=== PATIENT | male | born 1985 | race Caucasian/White ===

== ENCOUNTER 2017-06-21 13:12 | Emergency (ER) | payer MEDICAID, SELFPAY ==
[2017-06-21 13:42] VITALS: BP 111/70; PULSE 81; RESP 20; TEMP 37.1; O2SAT 97; BMI 19.8
--- NOTE | 2017-06-21 14:21 | HMH.EDUTC ---
[facility] [place] Disposition Clinical Impression: Low back strain Qualifiers: Encounter type: initial encounter Qualified Code(s): S39.012A - Strain of muscle, fascia and tendon of lower back, initial encounter Disposition: Home, Self-Care Condition on Discharge: Good Instructions: DI for Back Strain or Sprain Additional Instructions: * naproxen every 12 hours with meal as needed for pain/inflammation. * Remember you had a toradol shot, similiar anti-inflammatory in clinic so no naproxen for at least 6-8 hours * No additional anti-inflammatories like motrin, aleve, advil with the above amount of naproxen. You CAN still take Tylenol every 4 hours as needed if you need something more for pain. * Ice x15-20 mins 3-4 times a day for first 48 hours after the initial injury followed by moist heat x15-20 mins 3-4 times a day to affected area * Keep this area active. No movement leads to more stiffness. However, take it easy too and avoid heavy lifting, pushing, pulling Follow up with primary care immediately for new or worsening symptoms but also if no improvement over the next 72 hours. Prescriptions: Naproxen 500 mg PO BID PRN #20 tab PRN Reason: Moderate To Severe Pain Time of Disposition: 15:22 Medical Decision Making Vital Signs: 06/21/17 13:42 Temperature 98.7 F Temperature Source Temporal Artery Scan Pulse Rate [Right Radial] 81 Respiratory Rate 20 Blood Pressure [Right Arm] 111/70 Blood Pressure Mean [Right Arm] 83 Blood Pressure Source [Right Arm] Automatic Cuff Blood Pressure Position [Right Arm] Sitting 02 Sat by Pulse Oximetry 97 Oxygen Delivery Method Room Air - Lab Data Lab results reviewed: Yes: I reviewed the patient's lab results. Lab Results 06/21/17 14:30: Urine Color Yellow, Urine Appearance Clear, Urine pH 6.5, Ur Specific [place] 1.020, Urine Protein Negative, Urine Glucose (UA) Negative, Urine Ketones Negative, Urine Blood Negative, Urine Nitrate Negative, Urine Bilirubin Negative, Urine Urobilinogen 1, Ur Leukocyte Esterase Negative Orders (Tests/Meds): ED MEDICATIONS Discontinued Medications Generic Name Dose Route Start Last Admin Trade Name Freq PRN Reason Stop Dose Admin Ketorolac Tromethamine 60 mg 06/21/17 14:50 06/21/17 15:00 Toradol 60mg/2ml Vial IM 06/21/17 14:51 60 mg ONCE ONE Administration - Radhames Inquiry Pt receiving controlled substance: No - Reevaluation(s) Reevaluation #1: pain improved with toradol. Unable to place a number now but is better then it was before. I can move more now. Pt up ambulating in room without any sign of pain/distress [facility] [place] HPI - General Stated complaint: Back pain Time Seen by Provider: 06/21/17 14:21 Mode of Arrival: Family Vehicle Source of Information: Patient Limitations: No Limitations Description of Symptoms (Recalled from Triage Doc. by RN): PT C/O LOWER BACK PAIN. PT STATES HE WOKE UP WITH THE PAIN. DENIES INJURY OR HX OF SCIATIC PAIN. HEENT Symptoms (Recalled from RN notes): No Resp Symptoms (Recalled from RN notes): No Skin Symptoms (Recalled from RN notes): No MS Symptoms (Recalled from RN notes): Yes (LOWER BACK PAIN) Functional Status (Recalled from RN notes): NA - History of Present Illness Provider Complaint: c/o left sided low back pain. Started when woke up yesterday morning. no known injury, trauma, slip, fall. Reports day before, had pushed car alone when it quit running. No pain then. Hasn't taken or tried anything for symptoms. No constant pain. Intermittent sharp pain with certain ways I move or bend . Currently 4/10. Worse if sits or stands too long and improves with changing positions. - Related Data Previous Rx's Medication Instructions Recorded Naproxen 500 mg PO BID PRN #20 tab 06/21/17 Allergies Allergy/AdvReac Type Severity Reaction Status Date / Time No Known Allergies Allergy Verified 06/21/17 13:38 - Worker's Comp Is this a Worker's Comp case?: No [facility] History I
--- NOTE | 2017-06-21 14:30 | ED_ITS ---
[facility] [place] Impression: Low back strain Qualifiers: Encounter type: initial encounter Qualified Code(s): S39.012A - Strain of muscle, fascia and tendon of lower back, initial encounter Disposition: Home, Self-Care Condition on Discharge: Good Instructions: DI for Back Strain or Sprain Additional Instructions: * naproxen every 12 hours with meal as needed for pain/inflammation. * Remember you had a toradol shot, similiar anti-inflammatory in clinic so no naproxen for at least 6-8 hours * No additional anti-inflammatories like motrin, aleve, advil with the above amount of naproxen. You CAN still take Tylenol every 4 hours as needed if you need something more for pain. * Ice x15-20 mins 3-4 times a day for first 48 hours after the initial injury followed by moist heat x15-20 mins 3-4 times a day to affected area * Keep this area active. No movement leads to more stiffness. However, take it easy too and avoid heavy lifting, pushing, pulling Follow up with primary care immediately for new or worsening symptoms but also if no improvement over the next 72 hours. Prescriptions: Naproxen 500 mg PO BID PRN #20 tab PRN Reason: Moderate To Severe Pain Time of Disposition: 15:22 Medical Decision Making Vital Signs: 06/21/17 13:42 Temperature 98.7 F Temperature Source Temporal Artery Scan Pulse Rate [Right Radial] 81 Respiratory Rate 20 Blood Pressure [Right Arm] 111/70 Blood Pressure Mean [Right Arm] 83 Blood Pressure Source [Right Arm] Automatic Cuff Blood Pressure Position [Right Arm] Sitting 02 Sat by Pulse Oximetry 97 Oxygen Delivery Method Room Air - Lab Data Lab results reviewed: Yes: I reviewed the patient's lab results. Lab Results 06/21/17 14:30: Urine Color Yellow, Urine Appearance Clear, Urine pH 6.5, Ur Specific [place] 1.020, Urine Protein Negative, Urine Glucose (UA) Negative, Urine Ketones Negative, Urine Blood Negative, Urine Nitrate Negative, Urine Bilirubin Negative, Urine Urobilinogen 1, Ur Leukocyte Esterase Negative Orders (Tests/Meds): ED MEDICATIONS Discontinued Medications Generic Name Dose Route Start Last Admin Trade Name Freq PRN Reason Stop Dose Admin Ketorolac Tromethamine 60 mg 06/21/17 14:50 06/21/17 15:00 Toradol 60mg/2ml Vial IM 06/21/17 14:51 60 mg ONCE ONE Administration - Radhames Inquiry Pt receiving controlled substance: No - Reevaluation(s) Reevaluation #1: pain improved with toradol. Unable to place a number now but is better then it was before. I can move more now. Pt up ambulating in room without any sign of pain/distress [facility] [place] - General Stated complaint: Back pain Time Seen by Provider: 06/21/17 14:21 Mode of Arrival: Family Vehicle Source of Information: Patient Limitations: No Limitations Description of Symptoms (Recalled from Triage Doc. by RN): PT C/O LOWER BACK PAIN. PT STATES HE WOKE UP WITH THE PAIN. DENIES INJURY OR HX OF SCIATIC PAIN. HEENT Symptoms (Recalled from RN notes): No Resp Symptoms (Recalled from RN notes): No Skin Symptoms (Recalled from RN notes): No MS Symptoms (Recalled from RN notes): Yes (LOWER BACK PAIN) Functional Status (Recalled from RN notes): NA - History of Present Illness Provider Complaint: c/o left sided low back pain. Started when woke up yesterday morning. no known injury, trauma, slip, fall. Reports day before, had pushed car alone when it q
[2017-06-21 14:38] LABS: Apearance,Urine Clear (Clear); Color,Urine Yellow (Yellow)
[2017-06-21 14:39] LABS: Bilirubin,Urine Negative (Negative); Blood, Urine Negative (Negative); Glucose,Urine (UA) Negative (Negative); Ketones,Urine Negative (Negative); PH,Urine 6.5 (5.0-8.5); Protein,Urine Negative (Negative); UTC Leukocyte Esterase,Urine Negative (Negative); UTC Nitrate,Urine Negative (Negative); Urobilinogen,Urine 1 EU/dl (0.2)
[2017-06-21 15:23] VITALS: BP 144/70; PULSE 81; RESP 20; TEMP 36.6; O2SAT 99
== END 2017-06-21 15:24 | disposition home or self-care (01) ==
PROVIDERS: Emergency Provider Nurse Practitioner Family; Family Provider Family Medicine
DX: S39.012A Strain of muscle, fascia and tendon of lower back, initial encounter (principal); X50.0XXA Overexertion from strenuous movement or load, initial encounter; Y92.488 Other paved roadways as the place of occurrence of the external cause; F17.210 Nicotine dependence, cigarettes, uncomplicated; F10.10 Alcohol abuse, uncomplicated
CPT/HCPCS: 81003; 96372; 99202

== ENCOUNTER 2020-12-28 01:44 | Emergency (ER) | payer MEDICAID, SELFPAY ==
[2020-12-28 01:44] VITALS: BP 122/71; PULSE 78; RESP 16; TEMP 36.8; O2SAT 96; BMI 19.8
--- NOTE | 2020-12-28 01:53 | HMH.EDGENADL ---
ED Disposition Clinical Impression: Alcoholic intoxication Disposition: Home, Self-Care Condition on Discharge: Good Additional Instructions: Return to the emergency room for any new symptoms. Follow-up with your primary care physician. Avoid alcohol. Referrals: Provider,Referral, [Referring] - - Critical Care Critical Care Time: No Attestation: On 12/28/20, the high probability of a clinically significant, sudden or life threatening deterioration of the following system(s) required my full and direct attention, intervention and personal management. The time I documented below is in addition to time spent performing reported procedures but includes the following listed in this critical care notation. Medical Decision Making - Medical Records MR Comment: All the labs were negative except alcohol is positive. Alcohol intoxication. - Radhames Inquiry Pt receiving controlled substance: No Radhames was queried for this patient: No Vital Signs: 12/28/20 01:44 Temperature 98.2 F Temperature Source Oral Pulse Rate [Right] 78 Respiratory Rate 16 Blood Pressure [Right Arm] 122/71 Blood Pressure Mean [Right Arm] 88 02 Sat by Pulse Oximetry 96 - Lab Data Lab Results 12/28/20 01:57: Urine Opiates Screen Negative, Urine Methadone Screen Negative, Ur Barbituates Screen Negative, Ur Phencyclidine Scrn Negative, Ur Amphetamines Screen Negative, U Benzodiazepines Scrn Negative, Urine Cocaine Screen Negative, U Marijuana (THC) Screen Negative 12/28/20 02:03: WBC 9.7, RBC 5.09, Hgb 15.5, Hct 46.9, MCV 92.1, MCH 30.4, MCHC 33.0, RDW 13.6, Plt Count 219, MPV 8.7, Neut % (Auto) 52.4, Lymph % (Auto) 42.5, [place] % (Auto) 2.9, Eos % (Auto) 1.4, Baso % (Auto) 0.9, Neut # (Auto) 5.1, Lymph # (Auto) 4.1, [place] # (Auto) 0.3, Eos # (Auto) 0.1, Baso # (Auto) 0.1 12/28/20 02:03: Sodium 136, Potassium 3.1 L, Chloride 102, Carbon Dioxide 20 L, Anion Gap 17.1 H, BUN 7 L, Creatinine 0.70, Estimated Creat Clear 140, Estimated GFR 128, Est GFR ( Amer) 154, Glucose 67 L, Calcium 8.8, Total Bilirubin 0.6, AST 29, ALT 30, Alkaline Phosphatase 74, Total Protein 7.1, Albumin 4.3, Globulin 2.8, Albumin/Globulin Ratio 1.5 12/28/20 02:03: Plasma/Serum Alcohol 208 H Result diagrams: 12/28/20 02:03 12/28/20 02:03 Orders (Tests/Meds): ED MEDICATIONS Generic Name Dose Route Start Last Admin Trade Name Eleazar PRN Reason Stop Dose Admin Sodium Chloride 1,000 mls @ 999 mls/hr 12/28/20 03:00 12/28/20 03:01 Sod Chlor 0.9% 1000ml Bag IV 12/28/20 04:00 999 mls/hr .Q1H1M CRISTELA Administration General Adult HPI - General Stated complaint: ETOH Time Seen by Provider: 12/28/20 01:53 - History of Present Illness HPI narrative: Patient a 35-year male who was brought here by EMS. According to EMS his friends called because he was drinking and became unresponsive. They checked his blood sugar was 78 they gave him D50. Later on he became awake and alert. EMS not sure if there is drugs involved besides the alcohol consumption. Emergency room he is alert awake and oriented with no distress. He denied any past medical illness. he has been Drinking alcohol continuously today because it is his dad's birthday several beers and shots of whiskey. Also he smokes marijuana. He denies any IV drug use. He does not take any medications on a regular basis. - Related Data Home Medications Medication Instructions Recorded Confirmed No Known Home Medications 12/14/18 12/28/20 Allergies Allergy/AdvReac Type Severity Reaction Status Date / Time No Known Allergies Allergy Verified 12/20/18 23:05 [facility] History - Hepatitis A Screen Attestation statement:: This patient has been screened for Hepatitis A risk factors. Medical History: Denies:: Cancer, Diabetes Mellitus Type 1, Diabetes Mellitus Type 2, Hypertension, MRSA Other Surgeries: Yes: No Previous Surgery Amputation: No Fractures: No - Social History Smoking Stat
--- NOTE | 2020-12-28 01:56 | CT_ITS ---
PROCEDURE INFORMATION: Exam: CT Head Without Contrast Exam date and time: 12/28/2020 1:56 AM Age: 35 years old Clinical indication: Other: ETOH abuse, unresponsive, ; additional info: Unresponsive ETOH abuse TECHNIQUE: Imaging protocol: Computed tomography of the head without contrast. 3D rendering (Not supervised by radiologist): MIP and/or 3D reconstructed images were created by the technologist. Radiation optimization: All CT scans at this facility use at least one of these dose optimization techniques: automated exposure control; mA and/or kV adjustment per patient size (includes targeted exams where dose is matched to clinical indication); or iterative reconstruction. COMPARISON: No relevant prior studies available. FINDINGS: Brain: Normal. No hemorrhage. Unremarkable white matter. No mass effect. Cerebral ventricles: No ventriculomegaly. Paranasal sinuses: Visualized sinuses are unremarkable. No fluid levels. Mastoid air cells: Visualized mastoid air cells are well aerated. Bones/joints: Unremarkable. No acute fracture. Soft tissues: Unremarkable. IMPRESSION: No acute intracranial abnormality.
[2020-12-28 02:18] LABS: Basophils # 0.1 K/mm3 (0-0.2); Basophils % 0.9 % (0.1-2.0); Eosinophils # 0.1 K/mm3 (0.0-0.4); Eosinophils % 1.4 % (0.1-12.0); Hematocrit 46.9 % (42.0-52.0); Hemoglobin 15.5 g/dL (14.1-18.0); Lymphocytes # 4.1 K/mm3 (0.7-4.5); Lymphocytes % 42.5 % (10-50); Mean Corpuscular Hemoglobin 30.4 pg (27.0-31.2); Mean Corpuscular Volume 92.1 fl (80-94); Mean Platelet Volume 8.7 fl (7.4-10.4); Monocytes # 0.3 K/mm3 (0.1-1.0); Monocytes % 2.9 % (1.7-9.3); Neutrophils # 5.1 K/mm3 (1.8-7.8); Neutrophils % 52.4 % (37.0-80.0); Platelet Count 219 K/mm3 (142-424); Red Blood Count 5.09 M/mm3 (4.60-6.20); Red Cell Distribution Width 13.6 % (11.5-17.5); White Blood Count 9.7 K/mm3 (4.8-10.8)
[2020-12-28 02:26] LABS: Phencyclidine Screen,Urine Negative ng/ml (<25)
[2020-12-28 02:27] LABS: Opiate Screen,Urine Negative ng/ml (<300)
[2020-12-28 02:28] LABS: Amphetamine/Metha Screen,Urine Negative ng/ml (<1000)
[2020-12-28 02:29] LABS: Barbiturates Screen,Urine Negative ng/ml (<200)
[2020-12-28 02:30] LABS: Benzodiazepines Screen,Urine Negative ng/ml (<200); Cannabinoid Screen,Urine Negative ng/ml (<50)
[2020-12-28 02:31] LABS: Alanine Aminotransferase 30 U/L (12-78); Albumin Level 4.3 g/dl (3.5-5.0); Albumin/Globulin Ratio 1.5 (1.1-1.8); Alkaline Phosphatase 74 U/L (38-126); Anion Gap 17.1 mEq/L (5-15); Aspartate Amino Transferase 29 U/L (17-59); Bilirubin,Total 0.6 mg/dl (0.2-1.3); Blood Urea Nitrogen 7 mg/dl (9-20); Calcium 8.8 mg/dl (8.4-10.2); Carbon Dioxide 20 mmol/L (22.0-30.0); Chloride 102 mmol/L (98-107); Creatinine Clearance Estimated 140 mL/min (50-200); Estimated Glomerular Filt Rate 128 ml/min (>60); Ethyl Alcohol 208 mg/dl (0-10); GFR (African American) 154 ML/MIN (>60); Globulin 2.8 g/dL (1.3-3.2); Glucose 67 mg/dl (74-100); Potassium 3.1 mmoL/L (3.5-5.1); Sodium 136 mmol/L (136-145); Total Protein,Serum 7.1 g/dl (6.3-8.2)
[2020-12-28 02:31] LABS: Cocaine Screen,Urine Negative ng/ml (<300)
[2020-12-28 02:32] LABS: Methadone Screen,Urine Negative ng/ml (<300)
[2020-12-28 04:05] VITALS: BP 112/63; PULSE 82; RESP 18; TEMP 36.7; O2SAT 99
== END 2020-12-28 04:06 | disposition home or self-care (01) ==
PROVIDERS: Emergency Provider Internal Medicine; PCP Nurse Practitioner Family
DX: F10.929 Alcohol use, unspecified with intoxication, unspecified (principal); F12.10 Cannabis abuse, uncomplicated; F17.210 Nicotine dependence, cigarettes, uncomplicated
CPT/HCPCS: 70450; 80053; 80305; 85025; 96365; 99283

== ENCOUNTER 2021-02-03 03:51 | Emergency (ER) | payer MEDICAID, SELFPAY ==
[2021-02-03 03:46] VITALS: BP 116/75; PULSE 84; RESP 16; TEMP 36.4; O2SAT 98; BMI 19.8
[2021-02-03 04:27] LABS: Basophils # 0.1 K/mm3 (0-0.2); Basophils % 0.8 % (0.1-2.0); Eosinophils # 0.2 K/mm3 (0.0-0.4); Eosinophils % 2.3 % (0.1-12.0); Hematocrit 50.3 % (42.0-52.0); Hemoglobin 16.5 g/dL (14.1-18.0); Lymphocytes % 47.3 % (10-50); Mean Corpuscular HGB Conc 32.8 g/dL (31.8-35.4); Mean Corpuscular Hemoglobin 30.9 pg (27.0-31.2); Mean Corpuscular Volume 94.1 fl (80-94); Mean Platelet Volume 8.7 fl (7.4-10.4); Monocytes # 0.3 K/mm3 (0.1-1.0); Monocytes % 3.6 % (1.7-9.3); Neutrophils # 3.9 K/mm3 (1.8-7.8); Platelet Count 253 K/mm3 (142-424); Red Blood Count 5.35 M/mm3 (4.60-6.20); White Blood Count 8.5 K/mm3 (4.8-10.8)
[2021-02-03 04:33] LABS: Alanine Aminotransferase 29 U/L (12-78); Albumin Level 4.5 g/dl (3.5-5.0); Albumin/Globulin Ratio 1.5 (1.1-1.8); Alkaline Phosphatase 74 U/L (38-126); Aspartate Amino Transferase 31 U/L (17-59); Bilirubin,Total 0.6 mg/dl (0.2-1.3); Blood Urea Nitrogen 4 mg/dl (9-20); Calcium 9.5 mg/dl (8.4-10.2); Carbon Dioxide 25 mmol/L (22.0-30.0); Chloride 109 mmol/L (98-107); Creatinine Clearance Estimated 162 mL/min (50-200); Estimated Glomerular Filt Rate 152 ml/min (>60); Ethyl Alcohol 195 mg/dl (0-10); GFR (African American) 183 ML/MIN (>60); Globulin 3.1 g/dL (1.3-3.2); Glucose 75 mg/dl (74-100); Sodium 145 mmol/L (136-145); Total Protein,Serum 7.6 g/dl (6.3-8.2)
[2021-02-03 04:36] LABS: Acetaminophen < 10 ug/ml (10-30); Salicylate < 1.0 mg/dL (2.0-20.0)
[2021-02-03 05:00] VITALS: BP 103/69; PULSE 71; RESP 14; O2SAT 97
[2021-02-03 05:38] LABS: Microscopic, Urine URINE MICROSCOPIC (MICROSCOPIC)
[2021-02-03 05:40] LABS: Appearance,Urine CLEAR (Clear); Bilirubin,Urine Negative (Negative); Blood, Urine Negative (Negative); Color,Urine YELLOW (Yellow); Glucose,Urine (UA) Negative (Negative); Ketones,Urine Negative (Negative); Leukocyte Esterase,Urine Negative (Negative); Nitrate,Urine Negative (Negative); Protein,Urine Negative (Negative); Specific Gravity, Urine <= 1.005 (1.005-1.030); Urobilinogen,Urine 0.2 EU/dl (0.2)
[2021-02-03 05:51] LABS: Bacteria,Urine Trace /lpf; Barbiturates Screen,Urine Negative ng/ml (<200); WBC,Urine Occasional #/hpf (0-3)
[2021-02-03 05:52] LABS: Amphetamine/Metha Screen,Urine Negative ng/ml (<1000); Benzodiazepines Screen,Urine Negative ng/ml (<200)
[2021-02-03 05:53] LABS: Cannabinoid Screen,Urine Negative ng/ml (<50); Cocaine Screen,Urine Negative ng/ml (<300)
[2021-02-03 05:54] LABS: Methadone Screen,Urine Negative ng/ml (<300)
[2021-02-03 05:55] LABS: Opiate Screen,Urine Negative ng/ml (<300); Phencyclidine Screen,Urine Negative ng/ml (<25)
[2021-02-03 06:00] VITALS: BP 100/56; PULSE 68; O2SAT 99
--- NOTE | 2021-02-03 06:32 | HMH.EDAMS ---
ED Disposition Clinical Impression: Alcoholic intoxication Qualifiers: Complication of substance-induced condition: with unspecified complication Qualified Code(s): F10.929 - Alcohol use, unspecified with intoxication, unspecified Disposition: Home, Self-Care Condition on Discharge: Fair Instructions: DI for Alcohol Use Disorder Additional Instructions: see pcp for follow up Referrals: Elio Schmidt MD [Primary Care Provider] - - Critical Care Critical Care Time: No Attestation: On 02/03/21, the high probability of a clinically significant, sudden or life threatening deterioration of the following system(s) required my full and direct attention, intervention and personal management. The time I documented below is in addition to time spent performing reported procedures but includes the following listed in this critical care notation. Medical Decision Making - Medical Records Medical records reviewed: Yes: I reviewed the patient's medical records. - Radhames Inquiry Pt receiving controlled substance: No Vital Signs: 02/03/21 03:46 02/03/21 05:00 02/03/21 06:00 Temperature 97.6 F Temperature Source Oral Pulse Rate 71 68 Pulse Rate [Right Radial] 84 Respiratory Rate 16 14 Blood Pressure 103/69 L 100/56 L Blood Pressure [Right Arm] 116/75 Blood Pressure Mean [Right Arm] 88 Blood Pressure Source Automatic Cuff Automatic Cuff Blood Pressure Source [Right Arm] Automatic Cuff Blood Pressure Position Supine Supine Blood Pressure Position [Right Arm] Sitting 02 Sat by Pulse Oximetry 98 97 99 Oxygen Delivery Method Room Air Room Air Room Air - Lab Data Lab results reviewed: Yes: I reviewed the patient's lab results. Lab Results 02/03/21 04:02: WBC 8.5, RBC 5.35, Hgb 16.5, Hct 50.3, MCV 94.1 H, MCH 30.9, MCHC 32.8, RDW 14.0, Plt Count 253, MPV 8.7, Neut % (Auto) 46.0, Lymph % (Auto) 47.3, [place] % (Auto) 3.6, Eos % (Auto) 2.3, Baso % (Auto) 0.8, Neut # (Auto) 3.9, Lymph # (Auto) 4.0, [place] # (Auto) 0.3, Eos # (Auto) 0.2, Baso # (Auto) 0.1 02/03/21 04:02: Sodium 145, Potassium 4.0, Chloride 109 H, Carbon Dioxide 25, Anion Gap 15.0, BUN 4 L, Creatinine 0.60 L, Estimated Creat Clear 162, Estimated GFR 152, Est GFR ( Amer) 183, Glucose 75, Calcium 9.5, Total Bilirubin 0.6, AST 31, ALT 29, Alkaline Phosphatase 74, Total Protein 7.6, Albumin 4.5, Globulin 3.1, Albumin/Globulin Ratio 1.5, Salicylates < 1.0 L, Acetaminophen < 10 L 02/03/21 04:02: Plasma/Serum Alcohol 195 H 02/03/21 05:34: Urine Color Yellow, Urine Appearance Clear, Urine pH 6.0, Ur Specific [place] <= 1.005, Urine Protein Negative, Urine Glucose (UA) Negative, Urine Ketones Negative, Urine Blood Negative, Urine Nitrate Negative, Urine Bilirubin Negative, Urine Urobilinogen 0.2, Ur Leukocyte Esterase Negative, Urine WBC Occasional, Urine Bacteria Trace 02/03/21 05:34: Urine Opiates Screen Negative, Urine Methadone Screen Negative, Ur Barbituates Screen Negative, Ur Phencyclidine Scrn Negative, Ur Amphetamines Screen Negative, U Benzodiazepines Scrn Negative, Urine Cocaine Screen Negative, U Marijuana (THC) Screen Negative Result diagrams: 02/03/21 04:02 02/03/21 04:02 Orders (Tests/Meds): ED MEDICATIONS Discontinued Medications Generic Name Dose Route Start Last Admin Trade Name Freq PRN Reason Stop Dose Admin Sodium Chloride 1,000 mls @ 999 mls/hr 02/03/21 04:30 02/03/21 04:30 Sod Chlor 0.9% 1000ml Bag IV 02/03/21 05:30 999 mls/hr .Q1H1M CRISTELA Administration Sodium Chloride 1,000 mls @ 999 mls/hr 02/03/21 05:30 02/03/21 05:32 Sod Chlor 0.9% 1000ml Bag IV 02/03/21 06:30 999 mls/hr .Q1H1M CRISTELA Administration Medical Decision Narrative: pt with acute intox w/o focal changes and expresses no self-harm Altered Mental Status HPI - General Chief Complaint: Alcohol Stated Complaint: ETOH Time Seen by Provider: 02/03/21 05:00 Mode of Arrival: EMS Source of Information: Patient, EMS, [facility]
--- NOTE | 2021-02-03 06:32 | PC.NURSE ---
Attempted to call Eugenie Velez at this time with no answer. Will attempt again in 15 min.
--- NOTE | 2021-02-03 07:34 | PC.NURSE ---
pt states his phone is at home, he does not know anyones phone numbers. Admissions staff states not long ago a female came to window and asked about pt, no one in waiting room or parking lot at this time. Ordering pt a breakfast tray. Will call number listed on pt chart again soon.
--- NOTE | 2021-02-03 08:42 | PC.NURSE ---
Dispatch called and asked to send officer to patients residence to awake someone to come get patient. [phone]
--- NOTE | 2021-02-03 08:50 | PC.NURSE ---
Pt getting confrontational about wanting to leave, dispatch stated that they did not make contact with anyone at residence. officer remauriested to come to ER
[2021-02-03 09:08] VITALS: BP 100/56; PULSE 68; RESP 16; TEMP 36.7; O2SAT 99
== END 2021-02-03 09:09 | disposition home or self-care (01) ==
PROVIDERS: Emergency Provider Emergency Medicine; PCP Emergency Medicine
DX: F10.929 Alcohol use, unspecified with intoxication, unspecified (principal); F33.1 Major depressive disorder, recurrent, moderate; F90.9 Attention-deficit hyperactivity disorder, unspecified type
CPT/HCPCS: 80053; 80305; 80329; 81001; 85025; 96365; 96366; 99283

== ENCOUNTER 2022-04-20 17:41 | Emergency (ER) | payer MEDICAID, SELFPAY ==
[2022-04-20 18:20] VITALS: BP 107/68; PULSE 70; RESP 16; TEMP 36.9; O2SAT 99; BMI 20.3
--- NOTE | 2022-04-20 18:20 | EXP.UTC ---
Discharge Plan Disposition Patient Disposition: Still a Patient Condition: Good Prescriptions Prescriptions: No Action No Known Home Medications Clinical Impressions Clinical Impression: Low back strain, Acute neck pain Discharge ED Provider: Dannie Seymour [facility] [place] General Stated complaint: Sharp pain in headache and back Mode of Arrival: Ambulatory Source of Information: Patient Limitations: No Limitations Time Seen by Provider: 04/20/22 18:20 HEENT Symptoms (Recalled from RN notes): No Resp Symptoms (Recalled from RN notes): No Skin Symptoms (Recalled from RN notes): No GI/ Symptoms (Recalled from RN notes): No MS Symptoms (Recalled from RN notes): Yes Card Symptoms (Recalled from RN notes): No Other (Recalled from RN notes): Yes History of Present Illness Provider Complaint: 37 yr old male presents for back and neck pain. pt states he feel from a ladder last night and since then he has back pain. pt states he feels pain and numbness down both legs, having dry mouth. pt states last pm he woke up numerous times throwing up and at one time he was throwing stuff off his dresser and the belt lacer were called but he did not know what was going on. today pt states he is having diff walking or sitting due to pain and numbness Related Data Home Medications Medication Instructions Recorded Confirmed No Known Home Medications 12/14/18 12/28/20 Allergies Allergy/AdvReac Type Severity Reaction Status Date / Time No Known Allergies Allergy Verified 04/20/22 18:23 [facility] Disclaimer: The information contained in this section may have been updated after the patient was seen, as this information can be updated by other users. Social History , COUNSELING SERVICES DIRECTOR) Smoking Status: Current every day smoker tobacco type: cigarettes packs per day: 4 alcohol intake: current substance use type: marijuana current occupational status: unemployed Travel in the last 8 weeks: None ROS Obtained: Yes All systems reviewed & no additional complaints except as documented Constitutional Constitutional: Reports system reviewed and no additional complaints, except as documented and Reports as per HPI Eyes Eyes: Reports system reviewed and no additional complaints, except as documented and Reports as per HPI ENT Ears, Nose, Mouth, and Throat: Reports system reviewed and no additional complaints, except as documented, Reports as per HPI and Reports neck pain Cardiovascular Cardiovascular: Reports system reviewed and no additional complaints, except as documented and Reports as per HPI Respiratory Respiratory: Reports system reviewed and no additional complaints, except as documented and Reports as per HPI Gastrointestinal Gastrointestingal: Reports system reviewed and no additional complaints, except as documented and as per HPI Musculoskeletal Musculoskeletal: Reports system reviewed and no additional complaints, except as documented, Reports as per HPI, Reports arthralgias, Reports back pain, Reports neck pain and Reports radiating pain into limb Integumentary/Breasts Skin/Breast: Reports system reviewed and no additional complaints, except as documented Hematologic/Lymphatic Henatologic/Lymphatic: Reports system reviewed and no additional complaints, except as documented Allergic/Immunologic Allergic/Immunologic: Reports system reviewed and no additional complaints, except as documented Physical Exam General General appearance: alert and in no apparent distress Head Head exam: atraumatic, normocephalic and normal inspection Eye Eye exam: Present normal appearance and PERRL ENT ENT exam: Present normal exam, normal oropharynx, mucous membranes moist, TM's normal bilaterally and normal external ear exam Neck Neck exam: Present normal inspection, trachea midline and tenderness; Absent meningismus or lymphadenopathy Respiratory Respiratory exam: Present normal lung sounds alejandro
[2022-04-20 18:50] VITALS: BP 107/68; PULSE 70; RESP 16; TEMP 36.9; O2SAT 99; BMI 20.3
--- NOTE | 2022-04-20 18:56 | CT_ITS ---
PROCEDURE INFORMATION: Exam: CT Thoracic Spine Without Contrast Exam date and time: 04/20/2022 7:11 PM Age: 37 years old Clinical indication: Injury or trauma; Fall; Blunt trauma (contusions or hematomas); Additional info: Fall, pain TECHNIQUE: Imaging protocol: Computed tomography of the thoracic spine without contrast. Radiation optimization: All CT scans at this facility use at least one of these dose optimization techniques: automated exposure control; mA and/or kV adjustment per patient size (includes targeted exams where dose is matched to clinical indication); or iterative reconstruction. COMPARISON: CT CERVICAL SPINE WO CON 04/20/2022 7:09 PM FINDINGS: Bones/joints: No acute fracture. Normal alignment. No significant disc protrusion. No severe spinal canal stenosis. Soft tissues: Unremarkable. Lungs: Bilateral apical scarring. Other findings: Stigmata of old granulomatous disease. IMPRESSION: No acute fracture or malalignment of the thoracic spine.
--- NOTE | 2022-04-20 18:56 | CT_ITS ---
PROCEDURE INFORMATION: Exam: CT Lumbar Spine Without Contrast Exam date and time: 04/20/2022 7:14 PM Age: 37 years old Clinical indication: Injury or trauma; Fall; Blunt trauma (contusions or hematomas); Additional info: Fall, pain TECHNIQUE: Imaging protocol: Computed tomography of the lumbar spine without contrast. Radiation optimization: All CT scans at this facility use at least one of these dose optimization techniques: automated exposure control; mA and/or kV adjustment per patient size (includes targeted exams where dose is matched to clinical indication); or iterative reconstruction. COMPARISON: CT THORACIC SPINE WO CON 04/20/2022 7:11 PM FINDINGS: Bones/joints: No acute fracture. Normal alignment. No significant disc protrusion. No severe spinal canal stenosis. Vasculature: The arteries demonstrate minimal atherosclerotic disease. Soft tissues: Unremarkable. IMPRESSION: No acute fracture or malalignment of the lumbar spine.
--- NOTE | 2022-04-20 18:56 | CT_ITS ---
PROCEDURE INFORMATION: Exam: CT Cervical Spine Without Contrast Exam date and time: 04/20/2022 7:09 PM Age: 37 years old Clinical indication: Injury or trauma; Fall; Blunt trauma; Additional info: Fall, pain TECHNIQUE: Imaging protocol: Computed tomography of the cervical spine without contrast. Radiation optimization: All CT scans at this facility use at least one of these dose optimization techniques: automated exposure control; mA and/or kV adjustment per patient size (includes targeted exams where dose is matched to clinical indication); or iterative reconstruction. COMPARISON: CT HEAD/BRAIN WO CON 04/20/2022 7:05 PM FINDINGS: Bones/joints: Mild loss of the cervical lordotic curvature. Developmental fusion at C3-C4. Lungs: Minimal regions of biapical pleural reactive change. Soft tissues: Left maxillary sinus inflammatory changes . IMPRESSION: No evidence of acute osseous injury.
--- NOTE | 2022-04-20 18:56 | CT_ITS ---
PROCEDURE INFORMATION: Exam: CT Head Without Contrast Exam date and time: 04/20/2022 7:05 PM Age: 37 years old Clinical indication: Injury or trauma; Fall; Blunt trauma (contusions or hematomas); Additional info: Fall, pain TECHNIQUE: Imaging protocol: Computed tomography of the head without contrast. Radiation optimization: All CT scans at this facility use at least one of these dose optimization techniques: automated exposure control; mA and/or kV adjustment per patient size (includes targeted exams where dose is matched to clinical indication); or iterative reconstruction. COMPARISON: CT HEAD/BRAIN WO CON 12/28/2020 2:20 AM FINDINGS: Brain: Normal. No hemorrhage. Unremarkable white matter. No mass effect. Cerebral ventricles: No ventriculomegaly. Paranasal sinuses: Small fluid level within the left maxillary sinus. Superimposed regions of mucosal thickening. Left ethmoid air cell inflammatory changes. Mastoid air cells: Visualized mastoid air cells are well aerated. Bones/joints: Unremarkable. No acute fracture. Soft tissues: Unremarkable. IMPRESSION: No evidence of acute intracranial abnormality.
--- NOTE | 2022-04-20 19:14 | PC.NURSE ---
pt to CT
--- NOTE | 2022-04-20 19:36 | PC.NURSE ---
shift change report to hope,rn tawanna,rn and lotusrn
--- NOTE | 2022-04-20 21:19 | [facility].EDFALL ---
Discharge Plan Disposition Patient Disposition: Still a Patient Condition: Good Prescriptions Prescriptions: New meloxicam 15 mg tablet 15 mg PO DAILY Qty: 10 0RF Clinical Impressions Clinical Impression: Low back strain, Acute neck pain, Concussion syndrome, Concussion without loss of consciousness, Concussion with loss of consciousness Instructions Patient Instructions: DI for Concussion, DI for Neck Pain Discharge ED Provider: Elio Schmidt Fall HPI General Chief Complaint: Fall Stated Complaint: Sharp pain in headache and back Time Seen by Provider: 04/20/22 18:20 Mode of Arrival: Wheelchair Source of Information: Patient Limitations: No Limitations Description of Symptoms (Recalled from ER Triage Doc. by RN): Pt c/o posterior neck pain, t-spine area pain and L-spine area pain. Pt reports pain is from him falling off of a step ladder lastnight. Pt reports he fell backwards landing on his back. Pt denies LOC. Pt reports he did snap r/t pain lastnight r/t pain as was throwing things and the manhole stripper were called, when asked pt states he is able to recall all of what happened. History of Present Illness HPI Narrative: pt fell with acute head and neck injury - pt with post concussion sx -seen in [email or web address] and sent to ed MD complaint: fall Onset (ago): day(s) Fall from: from height (distance) Fall witnessed: yes, by family Place fall occurred: home Loss of consciousness: none Prolonged down time: no Symptoms prior to fall: other (episode of confusion) Context: tripped/slipped Location of injury: head, neck and back Severity: moderate Associated symptoms (after fall): confusion Related Data Previous Rx's Medication Instructions Recorded meloxicam 15 mg tablet 15 mg PO DAILY #10 tabs 04/20/22 Allergies Allergy/AdvReac Type Severity Reaction Status Date / Time No Known Allergies Allergy Verified 04/20/22 18:23 [facility] Disclaimer: The information contained in this section may have been updated after the patient was seen, as this information can be updated by other users. Social History , [employer]) Smoking Status: Current every day smoker tobacco type: cigarettes packs per day: 4 alcohol intake: current substance use type: marijuana current occupational status: unemployed Travel in the last 8 weeks: None ROS Obtained: Yes All systems reviewed & no additional complaints except as documented Physical Exam General General appearance: alert and in no apparent distress Head Head exam: normocephalic Eye Eye exam: Present PERRL and EOMI; Absent nystagmus ENT ENT exam: Present mucous membranes moist Neck Neck exam: Present trachea midline and tenderness; Absent full ROM Respiratory Respiratory exam: Absent respiratory distress Cardiovascular Cardiovascular exam: Present regular rate Abdominal Exam Abdominal exam: Present soft Extremities Exam Extremities exam: Present full ROM Back Exam Back exam: Present tenderness Neurological Exam Neurological exam: Present alert, oriented X3, CN II-XII intact and other (gcs=15); Absent motor sensory deficit Psychiatric Psychiatric exam: Present normal affect Skin Skin exam: Absent rash Medical Decision Making Medical Records Medical records reviewed: Yes I reviewed the patient's medical records. Radhames Inquiry Pt receiving controlled substance: No Vital Signs: 04/20/22 18:20 04/20/22 18:50 Temperature 98.5 F 98.5 F Temperature Source Oral Oral Pulse Rate [Left Radial] 70 70 Respiratory Rate 16 16 Blood Pressure [Right Arm] 107/68 L 107/68 L Blood Pressure Mean [Right Arm] 81 81 Blood Pressure Source [Right Arm] Automatic Cuff Blood Pressure Position [Right Arm] Sitting 02 Sat by Pulse Oximetry 99 99 Oxygen Delivery Method Room Air Lab Data Lab results reviewed: Yes I reviewed the patient's lab results. Orders (Tests/Meds): ED MEDICATIONS Discontinued Medications
[2022-04-20 21:34] VITALS: BP 125/70; PULSE 88; RESP 17; TEMP 36.6; O2SAT 99
== END 2022-04-20 21:38 | disposition still patient (30) ==
LOC: UTC 18:26 → ER 18:55
PROVIDERS: Emergency Provider Emergency Medicine
DX: S39.012A Strain of muscle, fascia and tendon of lower back, initial encounter (principal); M54.2 Cervicalgia; F07.81 Postconcussional syndrome; W11.XXXA Fall on and from ladder, initial encounter
CPT/HCPCS: 70450; 72125; 72128; 72131; 99285